=== PATIENT | female | born 1990 | race Two or more races ===

== ENCOUNTER 2017-05-26 17:56 | Emergency (ER) | payer OTHER ==
[~2017-05-26] VITALS: Ht 160 cm; Wt 95.5 kg
[2017-05-26] MEDS ORDERED: LEXA5SOL PO (18:05)
[2017-05-26] MEDS ORDERED: HYDR100T PO (18:05)
[2017-05-26] MEDS ORDERED: IBUPROFEN 600 MG TAB PO ONE (19:30)
[2017-05-26 20:15] VITALS: BP 162/120
--- NOTE | 2017-05-26 21:40 | REP ---
RIGHT ANKLE SERIES, COMPLETE: 05/26/2017: Clinical history: Trauma. Findings: Four view show soft tissue swelling anterolateral aspect of the ankle. No visible or displaced fracture of the distal tibia and fibula. The mortise joint is symmetric and preserved. There is no subtalar joint abnormality. No talar dome osteochondral defect. The talonavicular and calcaneal cuboid joint are normal. Visualized tarsal bones intact. Impression: 1. Prominent soft tissue swelling anterolateral aspect of the ankle without visible or displaced fracture, avulsion, disruption of the mortise joint, heel spurs or other acute finding. Signed by Félix Lee MD 05/27/2017 11:11 A
== END 2017-05-26 20:39 | disposition home or self-care (01) ==
LOC: M ED 17:56
DX: S93.401A Sprain of unspecified ligament of right ankle, initial encounter (principal); X50.9XXA Other and unspecified overexertion or strenuous movements or postures, initial encounter; Y92.410 Unspecified street and highway as the place of occurrence of the external cause; Y93.01 Activity, walking, marching and hiking; Y99.8 Other external cause status; I10 Essential (primary) hypertension; F41.9 Anxiety disorder, unspecified; F17.210 Nicotine dependence, cigarettes, uncomplicated; Z79.899 Other long term (current) drug therapy; Z88.5 Allergy status to narcotic agent; Z88.1 Allergy status to other antibiotic agents; Z91.041 Radiographic dye allergy status; Z87.442 Personal history of urinary calculi

== ENCOUNTER 2017-06-05 12:29 | Emergency (ER) | payer OTHER ==
[~2017-06-05] VITALS: Ht 162.6 cm; Wt 93.2 kg
[~2017-06-05 12:29] MED LIST: HYDR100T PO; LEXA5SOL PO
[2017-06-05 12:48] VITALS: BP 173/122
[2017-06-05] MEDS ORDERED: PENI500T GT (13:17)
== END 2017-06-05 13:32 | disposition home or self-care (01) ==
LOC: M ED 12:29
DX: J02.9 Acute pharyngitis, unspecified (principal); I10 Essential (primary) hypertension; E07.9 Disorder of thyroid, unspecified; F41.9 Anxiety disorder, unspecified; Z72.0 Tobacco use; Z91.041 Radiographic dye allergy status; Z88.5 Allergy status to narcotic agent; Z88.1 Allergy status to other antibiotic agents; Z79.899 Other long term (current) drug therapy

== ENCOUNTER → 2017-11-10 | Outpatient (REF) | payer OTHER ==
[2017-11-11 14:47] LABS: CHLAMYDIA DNA AMPLIFICATION NEGATIVE (NEGATIVE); GC DNA AMPLIFICATION NEGATIVE (NEGATIVE)
== END ==
LOC: M SFHCLERA 15:36
DX: R30.0 Dysuria (principal)
CPT/HCPCS: 87591

== ENCOUNTER → 2017-12-12 | Outpatient (CLI) | payer OTHER | LOC: M LRY 17:18 | DX: S93.401A Sprain of unspecified ligament of right ankle, initial encounter (principal); X58.XXXA Exposure to other specified factors, initial encounter; Y93.9 Activity, unspecified | CPT/HCPCS: 73610; G0463 ==

== ENCOUNTER → 2017-12-12 | Outpatient (REF) | payer OTHER | LOC: M SFHCLERA 18:25 | DX: L50.9 Urticaria, unspecified (principal) ==

== ENCOUNTER 2017-12-19 11:13 | Emergency (ER) | payer OTHER ==
[2017-12-19] MEDS: NS 500 ML IV (11:01)
[2017-12-19 11:14] LABS: BASO % 0.5 % (0.0-1.0); EOS # 0.1 10^3/uL (0.0-0.50); EOS % 1.6 % (0.0-3.0); HEMATOCRIT 36.9 % (36.0-47.0); HEMOGLOBIN 11.9 g/dl (12.0-16.0); IMMATURE GRANULOCYTE % 0.2 % (0-3.0); LYMPH # 2.7 10^3/uL (1.5-6.5); LYMPH % 42.8 % (24.0-44.0); MEAN CORPUSCULAR HGB CONC 32.2 g/dl (32.0-36.5); MEAN CORPUSCULAR VOLUME 89.8 fl (80.0-96.0); MONO # 0.7 10^3/uL (0.0-0.8); MONO % 10.8 % (0.0-5.0); NEUTROPHILS # 2.8 10^3/uL (1.8-7.7); NEUTROPHILS % 44.1 % (36.0-66.0); PLATELET COUNT, AUTOMATED 256 10^3/uL (150-450); RED BLOOD COUNT 4.11 10^6/uL (4.00-5.40); RED CELL DISTRIBUTION WIDTH 14.5 % (11.5-14.5); WHITE BLOOD COUNT 6.4 10^3/uL (4.0-10.0)
[2017-12-19] MEDS: ACETAMINOPHEN TAB 650MG DOSE (2X325MG) PO (11:37)
[2017-12-19 11:42] LABS: ANION GAP 8 MEQ/L (8-16); BLOOD UREA NITROGEN 16 MG/DL (7-18); CALCIUM LEVEL 8.6 MG/DL (8.5-10.1); CARBON DIOXIDE LEVEL 26 MEQ/L (21-32); CHLORIDE LEVEL 104 MEQ/L (98-107); CREATININE FOR GFR 0.95 MG/DL (0.55-1.30); FREE T4 1.09 NG/DL (0.76-1.46); GLOMERULAR FILTRATION RATE > 60.0 (>60); GLUCOSE, FASTING 93 MG/DL (70-100); POTASSIUM SERUM 3.9 MEQ/L (3.5-5.1); SODIUM LEVEL 138 MEQ/L (136-145)
== END 2017-12-19 14:33 | disposition home or self-care (01) ==
LOC: M ED 11:13
DX: J10.2 Influenza due to other identified influenza virus with gastrointestinal manifestations (principal); R55 Syncope and collapse; F33.9 Major depressive disorder, recurrent, unspecified; E66.9 Obesity, unspecified; Z79.899 Other long term (current) drug therapy; Z88.5 Allergy status to narcotic agent; Z88.8 Allergy status to other drugs, medicaments and biological substances; Z91.040 Latex allergy status; Z91.041 Radiographic dye allergy status
CPT/HCPCS: 93005

== ENCOUNTER → 2018-09-03 | Outpatient (REF) | payer OTHER | LOC: M SFHCLERA 18:31 | DX: R68.89 Other general symptoms and signs (principal) ==

== ENCOUNTER → 2018-10-09 | Outpatient (CLI) | payer OTHER ==
[~2018-10-09] MED LIST changes: +HYDR12.55 PO; +MICA80TA2 PO; +PENI500T GT; +ZOLO25TA PO
--- NOTE | 2018-10-09 12:20 | REP ---
KUB, ONE VIEW: HISTORY: Dysuria. Air is present in small and large intestine. There are no air fluid levels or dilated loops of intestine. There is no pneumoperitoneum. Calcifications are present overlying the kidneys consistent with nephrolithiasis. Phleboliths are present in the pelvis. Surgical clips are present in the left upper quadrant. IMPRESSION: 1. Nonspecific bowel gas pattern. 2. Bilateral nephrolithiasis. Electronically Signed by Mason Au MD 10/09/2018 12:21 P
== END ==
LOC: M WUC 10:08
PROVIDERS: ATTEND Physician Assistant
DX: N20.0 Calculus of kidney (principal)

== ENCOUNTER 2019-03-05 04:54 | Emergency (ER) | payer OTHER ==
[~2019-03-05] VITALS: Ht 160 cm; Wt 64.1 kg
[2019-03-05] MEDS ORDERED: NS 1,000 ML IV ONE (05:15)
[2019-03-05] MEDS ORDERED: KETOROLAC 30 MG/ML VIAL (J1885) IV ONE (05:15)
[2019-03-05] MEDS ORDERED: DILUENT IV ONE (05:30)
[2019-03-05] MEDS ORDERED: NACL IV ONE (05:30)
[2019-03-05] MEDS ORDERED: KETAMINE IV ONE (05:30)
[2019-03-05 05:33] LABS: BASO # 0.1 10^3/uL (0.0-0.2); BASO % 0.7 % (0.0-1.0); EOS # 0.2 10^3/uL (0.0-0.50); EOS % 2.3 % (0.0-3.0); HEMATOCRIT 42.6 % (36.0-47.0); HEMOGLOBIN 13.6 g/dl (12.0-15.5); LYMPH # 3.6 10^3/uL (1.5-6.5); LYMPH % 42.7 % (24.0-44.0); MEAN CORPUSCULAR HEMOGLOBIN 30.8 pg (27.0-33.0); MEAN CORPUSCULAR HGB CONC 31.9 g/dl (32.0-36.5); MEAN CORPUSCULAR VOLUME 96.6 fl (80.0-96.0); MONO # 0.7 10^3/uL (0.0-0.8); MONO % 8.5 % (0.0-5.0); NEUTROPHILS # 3.9 10^3/uL (1.8-7.7); NEUTROPHILS % 45.6 % (36.0-66.0); PLATELET COUNT, AUTOMATED 295 10^3/uL (150-450); RED BLOOD COUNT 4.41 10^6/uL (4.00-5.40); WHITE BLOOD COUNT 8.5 10^3/uL (4.0-10.0)
[2019-03-05 05:34] LABS: APPEARANCE, URINE CLOUDY (CLEAR); BACTERIA, URINE AUTO 2+ (NEGATIVE); BILIRUBIN, URINE AUTO NEGATIVE (NEGATIVE); BLOOD, URINE BLOOD 3+ (NEGATIVE); CALCIUM OXALATE CRYSTALS SMALL; COLOR, URINE YELLOW (YELLOW); GLUCOSE, URINE (UA) AUTO NEGATIVE (NEGATIVE); KETONE, URINE AUTO TRACE mg/dL (NEGATIVE); LEUKOCYTE ESTERASE, URINE AUTO 2+ (NEGATIVE); MUCUS, URINE LARGE (NEGATIVE); NITRITE, URINE AUTO POSITIVE (NEGATIVE); PROTEIN, URINE AUTO 1+ mg/dL (NEGATIVE); RBC, URINE AUTO TNTC /HPF (0-3); SPECIFIC GRAVITY URINE AUTO 1.021 (1.002-1.035); SQUAMOUS EPITHELIAL CELL UR AU 31 /HPF (0-6); UROBILINOGEN, URINE AUTO 0.2 mg/dL (0.0-2.0); WBC, URINE AUTO 115 /HPF (0-3)
[2019-03-05 05:54] LABS: HCG, SERUM QUALITATIVE NEGATIVE (NEGATIVE)
[2019-03-05 05:58] LABS: ALBUMIN 3.8 GM/DL (3.2-5.2); ALT/SGPT 16 U/L (12-78); BILIRUBIN,DIRECT < 0.1 MG/DL (0.0-0.2); BILIRUBIN,TOTAL 0.3 MG/DL (0.2-1.0); BLOOD UREA NITROGEN 13 MG/DL (7-18); CALCIUM LEVEL 9.2 MG/DL (8.5-10.1); CARBON DIOXIDE LEVEL 26 MEQ/L (21-32); CHLORIDE LEVEL 111 MEQ/L (98-107); CREATININE FOR GFR 0.88 MG/DL (0.55-1.30); GLOMERULAR FILTRATION RATE > 60.0 (>60); GLUCOSE, FASTING 82 MG/DL (70-100); LIPASE 590 U/L (73-393); POTASSIUM SERUM 4.1 MEQ/L (3.5-5.1); SODIUM LEVEL 143 MEQ/L (136-145); TOTAL PROTEIN 7.1 GM/DL (6.4-8.2)
[2019-03-05] MEDS ORDERED: TAMSULOSIN 0.4 MG CAP PO ONE (06:00)
[2019-03-05] MEDS ORDERED: CIPROFLOXACIN 400 MG in APPROPRIATE DILUENT 1 EA IV ONE (06:30)
--- NOTE | 2019-03-05 07:08 | REPVR ---
EXAM: CT Abdomen and Pelvis Without Contrast EXAM DATE/TIME: 03/05/2019 5:06 AM CLINICAL HISTORY: 28 years old, female; Abdominal pain; Flank; Left; Additional info: L colic TECHNIQUE: Imaging protocol: Axial computed tomography images of the abdomen and pelvis without contrast. Coronal and sagittal reformatted images were created and reviewed. Radiation optimization: All CT scans at this facility use at least one of these dose optimization techniques: automated exposure control; mA and/or kV adjustment per patient size (includes targeted exams where dose is matched to clinical indication); or iterative reconstruction. COMPARISON: No relevant prior studies available. FINDINGS: ABDOMEN: Liver: Normal. No mass. Gallbladder and bile ducts: Normal. No calcified stones. No ductal dilation. Pancreas: Normal. No ductal dilation. Spleen: Normal. No splenomegaly. Adrenals: Normal. No mass. Kidneys and ureters: Large nonobstructing bilateral renal calculi. No hydronephrosis. Stomach and bowel: Status post gastric sleeve. Appendix: A normal appendix is seen. PELVIS: Bladder: Unremarkable as visualized. Reproductive: Left ovarian cyst measuring 3.0 x 3.4 x 2.7 cm. ABDOMEN and PELVIS: Intraperitoneal space: Normal. No free air. No significant fluid collection. Bones/joints: No acute fracture. No dislocation. Soft tissues: Unremarkable. Vasculature: There are multiple pelvic phleboliths. No definite ureteral calculi are evident. Lymph nodes: Normal. No enlarged lymph nodes. IMPRESSION: 1. Multiple large nonobstructing bilateral renal calculi. No ureteral calculi are evident and there is no evidence of obstructive uropathy. 2. Left ovarian cyst measuring 3.4 x 2.7 x 3.0 cm. 3. Status post gastric sleeve. Electronically signed by: Gerson Carrasquillo On 03/05/2019 07:07:34 AM
[2019-03-05] MEDS ORDERED: PRIL20TA2 PO (07:26)
[2019-03-05] MEDS ORDERED: ULTR5TAB PO (07:26)
[2019-03-05] MEDS ORDERED: ONE-TAB PO (07:26)
[2019-03-05] MEDS ORDERED: ZOLO100T PO (07:26)
[2019-03-05] MEDS ORDERED: D3 U5000 PO (07:26)
[2019-03-05] MEDS ORDERED: AMLO10TA5 PO (07:26)
[2019-03-05] MEDS ORDERED: amLODIPine 10 MG TAB PO ONE (07:30)
[2019-03-05] MEDS ORDERED: CHLORTHALIDONE 12.5MG PER 1/2 TABLET PO ONE (07:30)
[2019-03-05] MEDS ORDERED: hydrALAZINE INJ 20 MG/ML VIAL IV ONE (07:30)
[2019-03-05 07:42] VITALS: BP 155/102
[2019-03-05] MEDS ORDERED: K-TA10TA2 PO (09:29)
[2019-03-05] MEDS ORDERED: AMLO10TA PO (09:29)
[2019-03-05] MEDS ORDERED: LIDO5DIS41 TD (09:29)
[2019-03-05] MEDS ORDERED: CHLO125TA PO (09:29)
[2019-03-05 09:45] VITALS: BP 131/89
== END 2019-03-05 10:04 | disposition home or self-care (01) ==
LOC: M ED 04:54
DX: N20.1 Calculus of ureter (principal); I10 Essential (primary) hypertension; F41.9 Anxiety disorder, unspecified; F32.9 Major depressive disorder, single episode, unspecified; Z79.899 Other long term (current) drug therapy; Z87.442 Personal history of urinary calculi; Z88.5 Allergy status to narcotic agent; Z88.6 Allergy status to analgesic agent; Z88.8 Allergy status to other drugs, medicaments and biological substances; Z91.040 Latex allergy status; Z91.041 Radiographic dye allergy status
CPT/HCPCS: 74176; 80048; 80076; 81001; 83690; 84703; 85025; 87086; 96361; 96365; 96366; 96368; 96375; 99284; J0744

== ENCOUNTER 2019-08-31 18:37 | Emergency (ER) | payer OTHER ==
[~2019-08-31] VITALS: Ht 160 cm; Wt 65.8 kg
[~2019-08-31 18:37] MED LIST changes: -MACR100C43 PO; -ONDA4TAB6 PO; -PYRI1TAB5 PO; -TYLETAB14 PO
[2019-08-31 19:56] LABS: BASO # 0.1 10^3/uL (0.0-0.2); BASO % 0.5 % (0.0-1.0); EOS # 0.1 10^3/uL (0.0-0.5); EOS % 1.2 % (0.0-3.0); HEMATOCRIT 37.5 % (36.0-47.0); LYMPH # 3.2 10^3/uL (1.5-5.0); LYMPH % 27.2 % (24.0-44.0); MEAN CORPUSCULAR HEMOGLOBIN 30.1 pg (27.0-33.0); MONO # 0.9 10^3/uL (0.0-0.8); MONO % 7.4 % (0.0-5.0); NEUTROPHILS # 7.4 10^3/uL (1.5-8.5); NEUTROPHILS % 63.4 % (36.0-66.0); PLATELET COUNT, AUTOMATED 289 10^3/uL (150-450); RED BLOOD COUNT 3.99 10^6/uL (4.00-5.40); WHITE BLOOD COUNT 11.7 10^3/uL (4.0-10.0)
[2019-08-31] MEDS ORDERED: KETOROLAC 30 MG/ML VIAL (J1885) IV ONE (20:15)
[2019-08-31 20:22] LABS: ALBUMIN 3.5 GM/DL (3.2-5.2); ALT/SGPT 19 U/L (12-78); BILIRUBIN,DIRECT < 0.1 MG/DL (0.0-0.2); BILIRUBIN,TOTAL 0.3 MG/DL (0.2-1.0); BLOOD UREA NITROGEN 12 MG/DL (7-18); CALCIUM LEVEL 8.7 MG/DL (8.5-10.1); CARBON DIOXIDE LEVEL 25 MEQ/L (21-32); CHLORIDE LEVEL 112 MEQ/L (98-107); CREATININE FOR GFR 0.86 MG/DL (0.55-1.30); GLOMERULAR FILTRATION RATE > 60.0 (>60); GLUCOSE, FASTING 84 MG/DL (70-100); LIPASE 191 U/L (73-393); SODIUM LEVEL 141 MEQ/L (136-145); TOTAL PROTEIN 6.7 GM/DL (6.4-8.2)
--- NOTE | 2019-08-31 21:15 | REPVR ---
PROCEDURE INFORMATION: Exam: CT Abdomen And Pelvis Without Contrast Exam date and time: 08/31/2019 8:53 PM Age: 29 years old Clinical history: Abdominal pain; Localized; Left; Additional info: L flank pain TECHNIQUE: Imaging protocol: Computed tomography of the abdomen and pelvis without contrast. Axial, coronal and sagittal reformatted images were created and reviewed. Radiation optimization: All CT scans at this facility use at least one of these dose optimization techniques: automated exposure control; mA and/or kV adjustment per patient size (includes targeted exams where dose is matched to clinical indication); or iterative reconstruction. COMPARISON: CT ABD PELVIS W/O CONTRAST 03/05/2019 5:55 AM FINDINGS: Liver: Unremarkable. Gallbladder and bile ducts: No radiodense gallstones. No biliary ductal dilatation. Pancreas: Unremarkable. Spleen: Unremarkable. Adrenals: Unremarkable. Kidneys and ureters: 9 mm right renal cyst. Multiple nonobstructing bilateral renal calculi. No hydronephrosis. Stomach and bowel: Status post gastric sleeve. No obstruction. No bowel wall thickening. No pneumatosis. Appendix: Normal. Intraperitoneal space: Trace nonspecific free pelvic fluid, likely physiologic. No organized fluid collection. No free air. Vasculature: Unremarkable. No aneurysm. Lymph nodes: No pathologically enlarged lymph nodes. Bladder: Unremarkable. Reproductive: Unremarkable. Bones/joints: No acute osseous abnormality. Soft tissues: Unremarkable. IMPRESSION: 1. Multiple nonobstructing bilateral renal calculi. No hydronephrosis. 2. Additional findings, as above. COMMENT: Consistent with the [employer]'s Incidental Findings Committee Report (J Am Karen Radiol 2010): Unless the patient's specific circumstances suggest otherwise, any liver lesion 0.5 cm or less, any cystic kidney lesion less than 1.0 cm, and/or any adrenal lesion 1.0 cm or less not otherwise characterized in this report as possessing suspicious or indeterminate imaging features is/are highly likely to be benign and do not require follow-up imaging or biopsy. Electronically signed by: Celio Taylor On 08/31/2019 21:15:00 PM
[2019-08-31] MEDS ORDERED: MACR100C43 PO (22:05)
[2019-08-31] MEDS ORDERED: TYLETAB14 PO (22:05)
[2019-08-31] MEDS ORDERED: ONDA4TAB6 PO (22:05)
[2019-08-31] MEDS ORDERED: ACETAMINOPH W/CODEINE #3 TAB UD PO ONE (22:15)
[2019-08-31] MEDS ORDERED: NITROFURANTOIN (MACROBID) 100 MG CAP PO ONE (22:15)
[2019-08-31 22:20] VITALS: BP 158/98
[2019-09-01] MEDS ORDERED: PYRI1TAB5 PO (12:01)
[2019-09-01] MEDS ORDERED: TYLETAB14 PO (12:01)
--- NOTE | 2019-09-01 12:04 | ED PDOC ---
Post-Departure Follow-Up pts chart reviewed by this provider after getting call from pt that she did not receive her paper rx for tylenol #3 for renal colic. pt does have UTI with bilateral intrarenal stone. rx for tylenol with codeine sent to [facility] along with pyridium for bladder/UTI pain. charge nurse contacted pt regarding this change. IRMA HENDERSON Sep 01, 2019 12:04
== END 2019-08-31 22:33 | disposition home or self-care (01) ==
LOC: M ED 18:37
DX: N39.0 Urinary tract infection, site not specified (principal); N20.0 Calculus of kidney; Z87.440 Personal history of urinary (tract) infections; I10 Essential (primary) hypertension; D50.9 Iron deficiency anemia, unspecified; F41.9 Anxiety disorder, unspecified; Z87.42 Personal history of other diseases of the female genital tract; Z98.84 Bariatric surgery status; Z88.0 Allergy status to penicillin; Z96.0 Presence of urogenital implants; Z91.041 Radiographic dye allergy status; Z88.1 Allergy status to other antibiotic agents; Z88.5 Allergy status to narcotic agent; Z88.8 Allergy status to other drugs, medicaments and biological substances; Z91.040 Latex allergy status; Z79.899 Other long term (current) drug therapy
CPT/HCPCS: 74176; 80048; 80076; 81001; 81002; 81025; 83690; 84702; 85025; 87086; 87088; 87186; 96374; 99284; G0463; J1885

== ENCOUNTER → 2019-08-31 | Outpatient (REF) | payer OTHER ==
[~2019-08-31] MED LIST changes: +AMLO10TA PO; +AMLO10TA5 PO; +CHLO125TA PO; +D3 U5000 PO; +K-TA10TA2 PO; +LIDO5DIS41 TD; +MACR100C43 PO; +ONDA4TAB6 PO; +ONE-TAB PO; +PRIL20TA2 PO; +PYRI1TAB5 PO; +TYLETAB14 PO; +ULTR5TAB PO; +ZOLO100T PO
== END ==
LOC: M SFHCLERA 17:52
PROVIDERS: ATTEND Physician Assistant
DX: R10.9 Unspecified abdominal pain (principal)

== ENCOUNTER 2019-11-08 10:13 | Emergency (ER) | payer OTHER ==
[~2019-11-08] VITALS: Ht 160 cm; Wt 62.0 kg
[~2019-11-08 10:13] MED LIST changes: +MACR100C43 PO; +ONDA4TAB6 PO; +PYRI1TAB5 PO; +TYLETAB14 PO
[2019-11-08] MEDS ORDERED: NS 500 ML IV ONE ×2 (10:30→11:30)
--- NOTE | 2019-11-08 10:51 | REP ---
Head CT without contrast: History: CVA. Comparison study: No comparison study. CT findings: Bone window settings demonstrate an intact bony calvarium. There is no evidence of skull fracture or incidental bony calvarial lesion. There is mild mucosal thickening in the left maxillary and left ethmoid sinus air cells. The visualized paranasal sinuses appear otherwise clear. No intraorbital abnormality is seen. On soft tissue window setting images; the lateral, third, and fourth ventricles are normal in size and position. Ruff-white differentiation pattern is normal above and below the tentorium. There are is no evidence of intracranial hemorrhage. No mass, edema, infarction, or midline shift is seen. No extra-axial fluid collection is appreciated. Impression: There is mild mucosal thickening in the left maxillary and left ethmoid air cells. Otherwise negative noncontrast head CT. Electronically Signed by Isaiah Giles MD 11/08/2019 10:49 A
[2019-11-08 11:03] LABS: BASO # 0.1 10^3/uL (0.0-0.2); EOS # 0.2 10^3/uL (0.0-0.5); EOS % 4.1 % (0.0-3.0); HEMOGLOBIN 12.8 g/dl (12.0-15.5); LYMPH # 1.1 10^3/uL (1.5-5.0); LYMPH % 18.2 % (24.0-44.0); MEAN CORPUSCULAR HEMOGLOBIN 30.2 pg (27.0-33.0); MEAN CORPUSCULAR HGB CONC 31.2 g/dl (32.0-36.5); MEAN CORPUSCULAR VOLUME 96.7 fl (80.0-96.0); MONO # 0.6 10^3/uL (0.0-0.8); MONO % 10.3 % (0.0-5.0); NEUTROPHILS # 3.9 10^3/uL (1.5-8.5); NEUTROPHILS % 66.2 % (36.0-66.0); PLATELET COUNT, AUTOMATED 210 10^3/uL (150-450); RED BLOOD COUNT 4.24 10^6/uL (4.00-5.40); WHITE BLOOD COUNT 5.8 10^3/uL (4.0-10.0)
[2019-11-08 11:17] LABS: INR 1.01
[2019-11-08 11:22] LABS: PARTIAL THROMBOPLASTIN TIME 24.1 SECONDS (25.0-38.4)
[2019-11-08] MEDS ORDERED: ACETAMINOPHEN 500 MG TAB PO ONE (11:30)
[2019-11-08] MEDS ORDERED: KETOROLAC 30 MG/ML VIAL (J1885) IV ONE (11:30)
[2019-11-08 11:32] LABS: CK-MB VALUE MASS < 1.0 NG/ML (<3.6); CPK CREATINE PHOSPHOKINASE 81 U/L (26-192); MB/CK RELATIVE INDEX 1.23 (< OR =4); TROPONIN I < 0.02 NG/ML (< 0.10)
--- NOTE | 2019-11-08 11:41 | REP ---
Portable chest x-ray: Sitting AP view. History: CVA. Findings: The lungs are symmetrically aerated and clear. Pleural angles are sharp. Heart size is normal. Pulmonary vasculature is not increased. No significant bony abnormality is seen. Impression: No active disease. Electronically Signed by Isaiah Giles MD 11/08/2019 11:32 A
[2019-11-08] MEDS ORDERED: METOCLOPRAMIDE INJ 10MG/2ML VIAL (J2765) IV ONE (12:00)
[2019-11-08 12:45] VITALS: BP 158/115
[2019-11-08] MEDS ORDERED: AUGM875T28 PO (12:56)
[2019-11-08] MEDS ORDERED: ALL10TAB29 PO (12:56)
[2019-11-08] MEDS ORDERED: AZEL1SPR3 NARES (12:57)
--- NOTE | 2019-11-08 19:13 | ECGEPIP ---
[facility] - ED Test Date: 2019-11-08 Pat Name: SUNNY SARAH Department: Room: - Gender: Female Gum Remover: : 1990 Requested By: IRMA Ling Order Number: [id number] Reading MD: Marcela Cleveland Measurements Intervals [place] Rate: 76 P: 44 IN: 129 QRS: 61 QRSD: 73 T: 36 QT: 396 QTc: 447 Interpretive Statements SINUS RHYTHM SIMILAR 12/19/17 Electronically Signed on 11-08-2019 19:13:29 EST by Marcela Cleveland
== END 2019-11-08 13:13 | disposition home or self-care (01) ==
LOC: EDSEX 10:13 → EDBD 10:13 → M ED 10:13
DX: J32.9 Chronic sinusitis, unspecified (principal); I10 Essential (primary) hypertension; Z79.899 Other long term (current) drug therapy; Z88.1 Allergy status to other antibiotic agents; Z88.5 Allergy status to narcotic agent; Z88.8 Allergy status to other drugs, medicaments and biological substances; Z91.040 Latex allergy status; Z91.041 Radiographic dye allergy status
CPT/HCPCS: 70450; 71045; 80047; 82550; 82553; 84484; 84702; 85025; 85610; 85730; 86850; 86900; 86901; 93005; 93041; 94760; 96361; 96374; 99285; G0463; J1885

== ENCOUNTER 2019-11-12 08:42 | Inpatient (IN) | payer OTHER ==
[~2019-11-12] VITALS: Ht 160 cm; Wt 65.8 kg
[~2019-11-12 08:42] MED LIST changes: +ALL10TAB29 PO; +AUGM875T28 PO; +AZEL1SPR3 NARES
[2019-11-12] MEDS ORDERED: TAMSULOSIN 0.4 MG CAP PO SCH (09:00)
[2019-11-12 09:28] LABS: HEMATOCRIT 43.5 % (36.0-47.0); HEMOGLOBIN 13.4 g/dl (12.0-15.5); MEAN CORPUSCULAR HEMOGLOBIN 29.3 pg (27.0-33.0); MEAN CORPUSCULAR HGB CONC 30.8 g/dl (32.0-36.5); PLATELET COUNT, AUTOMATED 220 10^3/uL (150-450); RED BLOOD COUNT 4.58 10^6/uL (4.00-5.40); WHITE BLOOD COUNT 4.1 10^3/uL (4.0-10.0)
[2019-11-12] MEDS ORDERED: KETOROLAC 30 MG/ML VIAL (J1885) IV ONE (09:30)
[2019-11-12 09:58] LABS: BILIRUBIN, URINE MANUAL NEGATIVE (NEGATIVE); GLUCOSE, URINE (UA) MANUAL NEGATIVE (NEGATIVE); KETONE, URINE MANUAL NEGATIVE (NEGATIVE); UROBILINOGEN, URINE MANUAL NORMAL (NORMAL)
[2019-11-12 10:00] LABS: ALBUMIN 3.9 GM/DL (3.2-5.2); ALT/SGPT 20 U/L (12-78); BILIRUBIN,DIRECT 0.1 MG/DL (0.0-0.2); BILIRUBIN,TOTAL 0.2 MG/DL (0.2-1.0); BLOOD UREA NITROGEN 16 MG/DL (7-18); CARBON DIOXIDE LEVEL 27 MEQ/L (21-32); CHLORIDE LEVEL 108 MEQ/L (98-107); CREATININE FOR GFR 0.95 MG/DL (0.55-1.30); GLOMERULAR FILTRATION RATE > 60.0 (>60); GLUCOSE, FASTING 95 MG/DL (70-100); POTASSIUM SERUM 3.8 MEQ/L (3.5-5.1); SODIUM LEVEL 143 MEQ/L (136-145); TOTAL PROTEIN 7.4 GM/DL (6.4-8.2)
[2019-11-12 10:00] LABS: BACTERIA, URINE SMALL AMOUNT; SQUAMOUS EPITHELIAL CELL URINE MOD AMOUNT /hpf (SMALL AMT); YEAST, URINE SMALL AMOUNT
[2019-11-12] MEDS ORDERED: TAMSULOSIN 0.4 MG CAP PO ONE ×2 (10:15→23:45)
--- NOTE | 2019-11-12 10:19 | REP ---
CT of the abdomen pelvis without IV wall contrast for left lower quadrant pain and history of renal calculi: Comparison is 08/31/1928 teen. There are multiple bilateral nonobstructive renal calculi, as previously. However, there is left hydronephrosis/hydroureter as an interval change. There are two calculi in the pelvis on the left, not present previously, what along the left pelvic sidewall on image 100 and a left posterolateral to the urinary bladder on the left on image 120. These calculi measure approximate millimeters in diameter each and were not present in these locations on the comparison study, therefore, could be a left ureteral calculi. Confirmation with a CT urogram might be considered for assurance that these calculi within the ureter. There is no perinephric stranding on the left on the right. The visualized lower lung lund are unremarkable. The unenhanced hepatic parenchyma, gallbladder, and spleen are unremarkable. The pancreas is obscured by the minimal intraperitoneal body fat. There are surgical clips in the gastric wall as previously. The adrenals are unremarkable. The abdominal aorta is unremarkable. There is no periaortic adenopathy or mass. There is no bowel distension or obstruction. There is no ascites. Pelvis: The appendix is unremarkable. The uterus and adnexa are unremarkable. The pelvic bowel loops are unremarkable. There is no ascites or adenopathy. Impression: There are two 8 mm calculi in the pelvis on the left, not present on the comparison study, possibly distal left ureteral calculi. There is left hydronephrosis as an interval change. Consider a CT urogram for confirmation. There are surgical clips in the gastric wall as previously. There are multiple bilateral nonobstructive renal calculi, as previously. Electronically Signed by Tae Mark MD 11/12/2019 10:11 A
[2019-11-12 10:20] LABS: AMPHETAMINES LEVEL URINE NEGATIVE (NEGATIVE); BARBITURATES URINE NEGATIVE (NEGATIVE); BENZODIAZEPINES URINE NEGATIVE (NEGATIVE); CANNABINOIDS URINE POSITIVE (NEGATIVE); COCAINE METABOLITE URINE NEGATIVE (NEGATIVE); METHADONE URINE NEGATIVE (NEGATIVE); OPIATES URINE NEGATIVE (NEGATIVE); PHENCYCLIDINE URINE NEGATIVE (NEGATIVE)
[2019-11-12] MEDS: fentaNYL 100 MCG/2 ML INJECTION (J3010) IV PRN ×6 (10:23→18:45)
[2019-11-12] MEDS ORDERED: AMOX875T2 PO (11:53)
[2019-11-12] MEDS ORDERED: AZEL0.1S NARES (11:53)
[2019-11-12] MEDS ORDERED: AMLO10TA5 PO (11:53)
[2019-11-12] MEDS ORDERED: CETI10TA4 PO (11:53)
[2019-11-12] MEDS ORDERED: ONDANSETRON 4MG/2ML VIAL (J2405) IV PRN ×2 (12:30→18:30)
--- NOTE | 2019-11-12 12:52 | HPEPDOC ---
General Date of Admission 11/12/19 Date of Service: Nov 12, 2019 Chief Complaint The patient is a 29-year-old female admitted with a reason for visit of Flank Pain. Source: Patient Exam Limitations: No limitations Timing/Duration: Day(s) Severity: Severe Associated Symptoms: Nausea History of Present Illness Patient is 29 years old female with past history of nephrolithiasis, medullary s ponge kidney, gastric sleeve surgery, hypertension presented to the hospital with severe left lower quadrant abdominal pain. Patient stated the pain 10 out of 10 started few days ago associated with nausea and vomiting. Patient denies any fever but has chills. Of note patient had multiple episodes of nephrolithiasis with renal colic. She had 2 percutaneous nephrolithotomy in the past. In emergency room patient was found to have on abdominal CT two 8 mm calculi in the pelvis on the left, not present on the comparison study, possibly distal left ureteral calculi. There is left hydronephrosis as an interval change. Urologist Dr. Baird is planing to place a left ureteral stent. Home Medications Scheduled Amlodipine Besylate (Amlodipine Besylate) 10 Mg Tablet, 10 MG PO DAILY, (Reported) Amoxicillin/Potassium Clav (Amox-Clav 875-125 mg Tablet) 1 Each Tablet, 1 TAB PO BID, (Reported) FILLED 11/08/19 FOR 10 DAYS Azelastine HCl (Azelastine HCl) 0.1% [place].pump, 2 SPRAY NARES BID, (Reported) Cetirizine HCl (Cetirizine HCl) 10 Mg Tablet, 10 MG PO QHS, (Reported) Tamsulosin HCl (Flomax) 0.4 Mg Capsule, 0.4 MG PO DAILY Scheduled PRN Oxybutynin Chloride (Oxybutynin Chloride) 5 Mg Tablet, 5 MG PO Q8HP PRN for BLADDER SPASM Oxycodone HCl/Acetaminophen (Oxycodone-Acetaminophen 5-325) 1 Each Tablet, 1 TAB PO Q6HP PRN for MODERATE/SEVERE PAIN (PS 5-10) Allergies Coded Allergies: morphine (Verified Allergy, Severe, "i coded", 03/05/19) Cephalosporins (Verified Allergy, Intermediate, rash, 03/05/19) Contrast Media (Verified Allergy, Intermediate, ITCHING, 05/26/17) ergocalciferol (vitamin D2) (Verified Allergy, Intermediate, 03/05/19) tremors latex (Verified Allergy, Intermediate, rash, 03/05/19) ketamine (Verified Adverse Reaction, Intermediate, "PASSED OUT", 08/31/19) NSAIDS (Non-Steroidal Anti-Inflamma (Verified Adverse Reaction, Mild, gi bleeding/ gasrtic sleeve, 08/31/19) gi bleeding/ gasrtic sleeve Past Medical History Medical History nephrolithiasis, medullary sponge kidney, gastric sleeve surgery, hypertension Surgical History Gastric sleeve surgery Family History Father has hypertension, diabetes, mother has ovarian and breast cancer Social History * Smoker: Denies Alcohol: Denies Drugs: denies A-FIB/CHADSVASC A-FIB History Current/History of A-Fib/PAF?: No Current PO Anticoag Therapy: No Review of Systems Constitutional: Reports: Chills; Denies: Fever Eyes: Denies: Pain, Vision change ENT: Denies: Head Aches Skin: Denies: Rash, Lesions Pulmonary: Denies: Dyspnea, Cough Cardiovascular: Denies: Chest Pain, Palpitations Gastrointestinal: Reports: Nausea, Abdominal Pain Genitourinary: Reports: Dysuria Hematologic: Denies: Bruising, Bleeding Excessively Endocrine: Denies: Polydipsia, Polyphagia Musculoskeletal: Denies: Neck Pain, Back Pain Neurological: Denies: Weakness Psych: Reports: Mood Normal Physical Examination General Exam: Positive: Alert, Cooperative, Severe Distress Eye Exam: Positive: PERRLA ENT Exam: Positive: Atraumatic Neck Exam: Positive: Supple; Negative: JVD Chest Exam: Positive: Clear to auscultation Heart Exam: Positive: Tachycardic Telemetry: Positive: Sinus Abdomen Exam: Positive: Normal bowel sounds, BS Hypoactive, Tenderness (left lower quadrant) Extremity Exam: Negative: Clubbing, Cyanosis Skin Exam: Positive: Nl turgor and temperature Neuro Exam: Positive: Strength at 5/5 X4 ext, Cranial Nerves 3-12 NL Psych Exam: Positive: Mental status NL Vital Signs Vital Signs Date Time Temp Pulse Resp B/P (MAP) Pulse Ox O2 Delivery O2 Flow Rate FiO2 11/12/19 11:16 20 11/12/19 11:15 100 Room Air 11/12/19 08:52 11/12/19 08:42 97.7 105 Laboratory Data Labs 24H Laboratory Tests 2 11/12/19 09:14: Nucleated Red Blood Cells % (auto) 0.0, Activated Partial Thromboplast Time 27.3, Anion Gap 8, Glomerular Filtration Rate > 60.0, Lactic Acid Level 1.0, Calcium Level 9.0, Total Bilirubin 0.2, Direct Bilirubin 0.1, Aspartate Amino Transf (AST/SGOT) 13, Alanine Aminotransferase (ALT/SGPT) 20, Alkaline Phosphatase 73, Total Protein 7.4, Albumin 3.9, Albumin/Globulin Ratio 1.11 11/12/19 09:48: Urine Color (CHRISTIANO) YELLOW, Urine Appearance (CHRISTIANO) HAZYH, Urine pH (CHRISTIANO) 7.0, Urine Specific [place] (CHRISTIANO) 1.015, Bedside Urine Glucose (UA) NEGATIVE, Bedside Urine Ketones (LAB) NEGATIVE, Bedside Urine Blood POSITIVEH, Bedside Urine Nitrite (LAB) NEGATIVE, Bedside Urine Bilirubin (LAB) NEGATIVE, Bedside Urine Urobilinogen (LAB) NORMAL, Bedside Urine Leukocyte Esterase (L POSITIVEH, Urine Sediment Examination UNSPUN, Urine RBC 10-15H, Urine WBC 5-7H, Urine Squamous Epithelial Cells MOD AMOUNTH, Urine Bacteria SMALL AMOUNTH, Urine Hyaline Casts , Urine Yeast SMALL AMOUNTH, Urine Opiates Screen NEGATIVE, Urine Methadone Screen NEGATIVE, Urine Barbiturates Screen NEGATIVE, Urine Phencyclidine Screen NEGATIVE, Urine Amphetamines Screen NEGATIVE, Urine Benzodiazepines Screen NEGA TIVE, Urine Cocaine Metabolite Screen NEGATIVE, Urine Cannabinoids Screen POSITIVEH CBC/BMP Laboratory Tests 11/12/19 09:14 Microbiology Microbiology 11/12/19 Urine Culture, Received Pending 11/12/19 Blood Culture, Received Pending Assessment/Plan Patient is 29 years old female with past history of nephrolithiasis, medullary sponge kidney, gastric sleeve surgery, hypertension presented to the hospital with severe left lower quadrant abdominal pain. Patient stated the pain 10 out of 10 started few days ago associated with nausea and vomiting. In emergency room patient was found to have on abdominal CT two 8 mm calculi in the pelvis on the left, not present on the comparison study, possibly distal left ureteral calculi. There is left hydronephrosis as an interval change. Problems (1) Ureterolithiasis Status: Acute Problem Text: Patient has history of nephrolithiasis Dr. Baird will put stents IV fluid Flomax (2) Renal colic Status: Acute Problem Text: Pain management with Toradol and tramadol (3) Left flank pain Status: Acute Problem Text: Secondary to left ureteral obstruction See above Plan / VTE VTE Prophylaxis Ordered?: Yes FRANCESCA THOMSON DO Nov 12, 2019 12:52
[2019-11-12] MEDS ORDERED: traMADol 50 MG TAB PO ONE (13:00)
[2019-11-12 13:33] LABS: URIC ACID 5.4 MG/DL (2.6-6.0)
[2019-11-12 13:46] LABS: PTH INTACT 53.7 PG/ML (18.5-88.0)
[2019-11-12 14:53] VITALS: BP 180/118
[2019-11-12] MEDS: amLODIPine 10 MG TAB PO SCH (15:02)
[2019-11-12] MEDS ORDERED: CONRAY-60 60% 50ML VIAL (Q9961) As Ordered ONE (15:21)
[2019-11-12] MEDS: HYDROcodone/APAP LIQUID 7.5-325MG 15ML UDC (LORTAB ELIXIR) PO PRN (15:56)
[2019-11-12] MEDS ORDERED: propofoL 200 MG/20 ML VIAL As Ordered ONE (16:11)
[2019-11-12] MEDS ORDERED: LIDOCAINE 2% INJ 100 MG/5 ML SDV (FOR ANES.) As Ordered ONE (16:12)
--- NOTE | 2019-11-12 16:12 | SMCUROLCON ---
Urology Consultation General Date of Consultation 11/12/19 Reason For Consultation This patient is seen for Left Flank Pain Renal Colic Ureterolithiasis. History of Present Illness This is a 29 y/o F w/ a PMH significant for kidney stones s/p several surgeries (most recently a PCNL on the left last summer), medullary sponge kidney, and osteopenia, presenting to the ER w/ left sided flank pain. On CT she was found to have two 8mm distal left ureteral stones and b/l kidney stones. Due to intractable pain she was admitted to the hospital. She denies fevers or dysuria. At this time she notes her pain is a 7/10. She denies n/v. Past Medical History Medical History see HPI Surgical Hstory multiple PCNLs and ureteroscopies Medications Current Medications Current Medications Medications (Trade) Dose Ordered Sig/Jacquelyn Route PRN Reason Start Time Stop Time Status Last Admin Dose Admin Acetaminophen/ Hydrocodone Bitart (Lortab Liquid 7.5-325 Mg/15ml) 5 ml Q4HP PRN PO MODERATE PAIN (PS 5-7) 11/12/19 15:15 11/12/19 15:56 Amlodipine Besylate (Norvasc) 10 mg DAILY PO 11/12/19 09:00 11/12/19 15:02 Cetirizine HCl (ZyrTEC) 10 mg QHS PO 11/12/19 21:00 Fentanyl Citrate (Sublimaze) 50 mcg Q30M PRN IV SEVERE PAIN (PS 8-10) 11/12/19 10:15 11/12/19 11:12 DC 11/12/19 11:11 Heparin Sodium (Porcine) (Heparin) 5,000 units Q12H SC 11/12/19 21:00 Home Med (Med Rec Complete!) ASDIRECTED XX 11/12/19 12:00 11/12/19 11:55 DC Ketorolac Tromethamine (ToRADol) 15 mg Q6H PRN IV PAIN 11/12/19 16:00 11/17/19 15:59 Ondansetron HCl (ZOFRAN INJection) 4 mg Q6H PRN IV NAUSEA 11/12/19 12:30 Tamsulosin HCl (Flomax) 0.4 mg DAILY PO 11/12/19 09:00 11/12/19 12:42 DC Tamsulosin HCl (Flomax) 0.4 mg DAILY PO 11/13/19 09:00 Allergies Allergies: Coded Allergies: morphine (Verified Allergy, Severe, "i coded", 03/05/19) Cephalosporins (Verified Allergy, Intermediate, rash, 03/05/19) Contrast Media (Verified Allergy, Intermediate, ITCHING, 05/26/17) ergocalciferol (vitamin D2) (Verified Allergy, Intermediate, 03/05/19) tremors latex (Verified Allergy, Intermediate, rash, 03/05/19) ketamine (Verified Adverse Reaction, Intermediate, "PASSED OUT", 08/31/19) NSAIDS (Non-Steroidal Anti-Inflamma (Verified Adverse Reaction, Mild, gi bleeding/ gasrtic sleeve, 08/31/19) gi bleeding/ gasrtic sleeve Review of Systems Constitutional: Denies: Fever Pulmonary: Denies: Dyspnea, Cough Cardiovascular: Denies Chest Pain, Denies Palpitations Gastrointestinal: Denies: Vomiting Genitourinary: Denies: Dysuria, Frequency, Incontinence, Hematuria Musculoskeletal: Reports: Back Pain (left flank pain) Psych: Reports: Mood Normal Physical Examination General Exam: Alert, Cooperative Abdomen Exam: Soft, Tenderness (LLQ) Skin Exam: Nl turgor and temperature Neuro Exam: Normal Speech Psych Exam: Mental status NL, Mood NL Vital Signs/I&O Vital Signs Date Time Temp Pulse Resp B/P (MAP) Pulse Ox O2 Delivery O2 Flow Rate FiO2 11/12/19 15:56 18 Room Air 11/12/19 15:02 77 180/118 11/12/19 14:53 98.4 100 Laboratory Data 24H Labs Laboratory Tests 2 11/12/19 09:14: Nucleated Red Blood Cells % (auto) 0.0, Activated Partial Thromboplast Time 27.3, Anion Gap 8, Glomerular Filtration Rate > 60.0, Lactic Acid Level 1.0, Uric Acid 5.4, Calcium Level 9.0, Phosphorus Level 3.0, Total Bilirubin 0.2, Direct Bilirubin 0.1, Aspartate Amino Transf (AST/SGOT) 13, Alanine Aminotransferase (ALT/SGPT) 20, Alkaline Phosphatase 73, Total Protein 7.4, Albumin 3.9, Albumin/Globulin Ratio 1.11, Parathyroid Hormone (Intact) 53.7 11/12/19 09:48: Urine Color (CHRISTIANO) YELLOW, Urine Appearance (CHRISTIANO) HAZYH, Urine pH (CHRISTIANO) 7.0, Urine Specific [place] (CHRISTIANO) 1.015, Bedside Urine Glucose (UA) NEGATIVE, Bedside Urine Ketones (LAB) NEGATIVE, Bedside Urine Blood POSITIVEH, Bedside Urine Nitrite (LAB) NEGATIVE, Bedside Urine Bilirubin (LAB) NEGATIVE, Bedside Urine Urobilinogen (LAB) NORMAL, Bedside Urine Leukocyte Esterase (L POSITIVEH, Urine Sediment Examination UNSPUN, Urine RBC 10-15H, Urine WBC 5-7H, Urine Squamous Epithelial Cells MOD AMOUNTH, Urine Bacteria SMALL AMOUNTH, Urine Hyaline Casts , Urine Yeast SMALL AMOUNTH, Urine Opiates Screen NEGATIVE, Urine Methadone Screen NEGATIVE, Urine Barbiturates Screen NEGATIVE, Urine Phencyclidine Screen NEGATIVE, Urine Amphetamines Screen NEGATIVE, Urine Benzodiazepines Screen NEGATIVE, Urine Cocaine Metabolite Screen NEGATIVE, Urine Cannabinoids Screen POSITIVEH CBC/BMP Laboratory Tests 11/12/19 09:14 Microbiology Microbiology 11/12/19 Urine Culture, Received Pending 11/12/19 Blood Culture, Received Pending Assessment This is a 29 y/o F w/ medullary sponge kidney admitted for pain control for obstructing left ureteral stones. I discussed taking her to the OR for cystoscopy, left ureteroscopy w/ laser lithotripsy, left ureteral stent placement, and possible right ureteral stent placement. After a discussion of the risks and benefits of surgery, informed consent was signed. She did note that she would like to avoid placing a right ureteral stent if possible. Plan - informed consent signed for cysto, left ureteroscopy w/ laser lithotripsy, left ureteral stent placement, possible right ureteral stent placement - will plan to clear the stones out on the left today and likely set her up for an ESWL on the right next week - levaquin preop - NPO until surgery - ok for discharge home tomorrow morning if pain is controlled at that point MABLE HIDALGO MD Nov 12, 2019 16:12
[2019-11-12] MEDS ORDERED: LevoFLOXacin IV 500 MG in IV 1 EA IV SCH (16:15)
[2019-11-12] MEDS ORDERED: dexameTHASONE 4 MG/ML 1ML VIAL (J1100) As Ordered ONE (16:16)
[2019-11-12] MEDS ORDERED: ONDANSETRON 4MG/2ML VIAL (J2405) As Ordered ONE (16:16)
[2019-11-12] MEDS ORDERED: fentaNYL 100 MCG/2 ML INJECTION (J3010) As Ordered ONE ×3 (16:17→18:31)
[2019-11-12] MEDS ORDERED: MIDAZOLAM INJ 2 MG/2 ML VIAL (J2250) As Ordered ONE (16:17)
[2019-11-12] MEDS ORDERED: LevoFLOXacin(LEVAQUIN)500 MG/100 ML BAG (J1956) As Ordered ONE (16:50)
[2019-11-12] MEDS ORDERED: ESMOLOL INJ 100MG/10ML VIAL As Ordered ONE (16:54)
[2019-11-12] MEDS ORDERED: oxyCODONE 5MG TAB PO PRN (18:30)
[2019-11-12] MEDS ORDERED: LR 1,000 ML IV SCH (18:30)
[2019-11-12] MEDS ORDERED: OXYB5TAB10 PO (18:38)
[2019-11-12] MEDS ORDERED: OXYC1TAB23 PO (18:38)
[2019-11-12] MEDS ORDERED: FLOM0.4C39 PO (18:38)
--- NOTE | 2019-11-12 18:48 | REP ---
Clinical: Retrograde pyelogram. Stent placement. Technique: Two intraoperative fluoroscopic images obtained. Findings: Evidence for mild left hydronephrosis with satisfactory left ureteral stent placement. Total fluoroscopic time 12 seconds. Impression: Satisfactory left ureteral stent placement. Electronically Signed by Troy Davis MD 11/12/2019 06:39 P
[2019-11-12] MEDS ORDERED: oxyCODONE 5MG TAB As Ordered ONE (19:00)
[2019-11-12] MEDS ORDERED: HYDROMORPHONE HCL 0.5 MG/ 0.5 ML SYRINGE (J1170 PER 1) As Ordered ONE (19:01)
[2019-11-12] MEDS: HYDROMORPHONE HCL 0.5 MG/ 0.5 ML SYRINGE (J1170 PER 1) IV PRN ×2 (19:05→19:10)
--- NOTE | 2019-11-12 19:41 | RO ---
DATE OF PROCEDURE: 11/12/2019 PREPROCEDURE DIAGNOSIS: Left kidney and ureteral stones. POSTPROCEDURE DIAGNOSIS: Left kidney and ureteral stones. PROCEDURE: Cystoscopy, left ureteroscopy with laser lithotripsy and basket extraction of stones, left retrograde pyelogram with intraoperative interpretation of images, left ureteral stent placement. SURGEON: John Paul Baird MD JIG AND FIXTURE REPAIRER: None. ANESTHESIA: General. OPERATIVE INDICATIONS: This 29-year-old female on CT scan today was found to have an 8 mm obstructing distal left ureteral stone as well as bilateral kidney stones. She was brought to the operating room today for treatment of her left-sided kidney and ureteral stones. DESCRIPTION OF PROCEDURE: The patient was brought to the operating room and general anesthesia was induced. Prophylactic antibiotics were infused. She was placed in the dorsal lithotomy position and prepped and draped in the usual sterile fashion. A rigid cystoscope was inserted into the urethral meatus and advanced into the bladder. A guidewire was then advanced up the left collecting system. I then went up the left collecting system with a short semirigid ureteroscope and within the distal ureter the 8 mm stone was seen. The stone was then fragmented into smaller pieces using 200 micron laser fiber and all the fragments were removed using a basket. I then advanced the ureteral access sheath up the left collecting system and then went up the access sheath with a flexible ureteroscope. The left kidney was thoroughly examined. There were several stones inside the left kidney measuring up to around 3 mm in size. There was also a moderate amount of nephrocalcinosis with the stones growing out of renal papilla. The majority of these stones were removed including the ones that were attached to the renal papilla. Once done, only very tiny stones remained which the patient should be able to easily pass. At this point, a retrograde pyelogram was performed and notable for moderate left hydronephrosis with no extravasation. I then withdrew the ureteroscope along with the access sheath and no additional stones were seen within the ureter. I then utilized the wire to advance a #6-Urdu x 22-32 cm JJ ureteral stent into the left collecting system. The wire was removed and their were adequate curls of the stent in the left renal pelvis and in the bladder. The bladder was then emptied of all fluids and this marked the conclusion of the procedure. The patient was taken out of the dorsal lithotomy position, awakened from anesthesia and transferred to the recovery room in stable condition. ESTIMATED BLOOD LOSS: 5 mL COMPLICATIONS: None. SPECIMENS: Kidney stones. PLAN: The patient will be kept overnight and then be discharged home tomorrow morning for pain control. We will have her followup in the urology clinic next week with the plan to get her set up for a right-sided extracorporal shock wave lithotripsy next week. We will also remove her left ureteral stent at the time of that procedure. BRIAN
[2019-11-12 19:55] VITALS: BP 152/102
[2019-11-12] MEDS: oxyBUTYnin 5 MG TAB PO PRN (20:16)
[2019-11-12] MEDS: HEPARIN SOD (PORCINE) 5000 UNITS/ML VIAL (J1644 PER 1000UNITS) SC SCH (20:17)
[2019-11-12 20:30] VITALS: BP 144/101
[2019-11-12 21:00] VITALS: BP 140/102
[2019-11-12] MEDS ORDERED: CETIRIZINE (ZyrTEC) 10 MG TAB PO SCH (21:00)
[2019-11-12] MEDS: KETOROLAC 30 MG/ML VIAL (J1885) IV PRN (21:26)
[2019-11-12 22:00] VITALS: BP 145/103
[2019-11-12 23:00] VITALS: BP 146/104
[2019-11-13] VITALS: BP 150/106
[2019-11-13] MEDS: HYDROcodone/APAP LIQUID 7.5-325MG 15ML UDC (LORTAB ELIXIR) PO PRN ×2 (00:01→06:33)
[2019-11-13 00:32] VITALS: BP 150/112
[2019-11-13 01:00] VITALS: BP 144/95
[2019-11-13] MEDS ORDERED: ALPRAZolam 0.25 MG TAB PO ONE (02:00)
[2019-11-13 05:00] VITALS: BP 124/82
[2019-11-13] MEDS: KETOROLAC 30 MG/ML VIAL (J1885) IV PRN (05:05)
[2019-11-13] MEDS: oxyBUTYnin 5 MG TAB PO PRN (06:33)
[2019-11-13 06:51] LABS: HEMATOCRIT 37.9 % (36.0-47.0); HEMOGLOBIN 11.7 g/dl (12.0-15.5); MEAN CORPUSCULAR HEMOGLOBIN 29.3 pg (27.0-33.0); MEAN CORPUSCULAR HGB CONC 30.9 g/dl (32.0-36.5); PLATELET COUNT, AUTOMATED 201 10^3/uL (150-450); RED BLOOD COUNT 3.99 10^6/uL (4.00-5.40); WHITE BLOOD COUNT 6.3 10^3/uL (4.0-10.0)
[2019-11-13 07:04] LABS: BLOOD UREA NITROGEN 14 MG/DL (7-18); CALCIUM LEVEL 8.6 MG/DL (8.5-10.1); CARBON DIOXIDE LEVEL 26 MEQ/L (21-32); CHLORIDE LEVEL 107 MEQ/L (98-107); CREATININE FOR GFR 0.98 MG/DL (0.55-1.30); GLOMERULAR FILTRATION RATE > 60.0 (>60); GLUCOSE, FASTING 82 MG/DL (70-100); MAGNESIUM LEVEL 1.8 MG/DL (1.8-2.4); POTASSIUM SERUM 4.4 MEQ/L (3.5-5.1); SODIUM LEVEL 138 MEQ/L (136-145)
[2019-11-13 08:10] VITALS: BP 124/82
[2019-11-13] MEDS: amLODIPine 10 MG TAB PO SCH (08:10)
[2019-11-13] MEDS: HEPARIN SOD (PORCINE) 5000 UNITS/ML VIAL (J1644 PER 1000UNITS) SC SCH (08:11)
[2019-11-13 09:00] VITALS: BP 148/99
[2019-11-13] MEDS ORDERED: TAMSULOSIN 0.4 MG CAP PO SCH (09:00)
--- NOTE | 2019-11-13 15:38 | DS.PDOC ---
Discharge Summary General Date of Admission Nov 12, 2019 at 12:29 Date of Discharge 11/13/19 Discharge Summary PROCEDURES PERFORMED DURING STAY: None ADMITTING DIAGNOSES: Ureterolithiasis Renal colic Left flank pain DISCHARGE DIAGNOSES: Ureterolithiasis Renal colic Left flank pain COMPLICATIONS/CHIEF COMPLAINT: Left Flank Pain Renal Colic Ureterolithiasis. HISTORY OF PRESENT ILLNESS: Patient is 29 years old female with past history of nephrolithiasis, medullary sponge kidney, gastric sleeve surgery, hypertension presented to the hospital with severe left lower quadrant abdominal pain. Patient stated the pain 10 out of 10 started few days ago associated with nausea and vomiting. In emergency room patient was found to have on abdominal CT two 8 mm calculi in the pelvis on the left, not present on the comparison study, possibly distal left ureteral calculi. There is left hydronephrosis as an int erval change. HOSPITAL COURSE: During hospital stay the following procedure was done Cystoscopy, left ureteroscopy with laser lithotripsy and basket extraction of stones, left retrograde pyelogram with intraoperative interpretation of images, left ureteral stent placement. DISCHARGE MEDICATIONS: Please see below. ALLERGIES: Please see below. PHYSICAL EXAMINATION ON DISCHARGE: VITAL SIGNS: Please see below. Objective: VITAL SIGNS: Please see below. GENERAL APPEARANCE: Well-nourished, well-developed, not in apparent distress HEENT: Normocephalic, atraumatic. Mucous members moist and pink CARDIOVASCULAR: Regular rate and rhythm. No murmurs, rubs or gallops. Radial pulses are intact. There is no lower extremity edema LUNGS: Diminished lung sounds ABDOMEN: Abdomen is soft and nontender. MUSCULOSKELETAL: Range of motion is intact in all 4 extremities NEUROLOGICAL: Cranial nerves II-12 are grossly intact. Speech is not dysarthric LABORATORY DATA: Please see below. IMAGING: CT of the abdomen pelvis without IV wall contrast for left lower quadrant pain and history of renal calculi: Comparison is 08/31/1928 teen. There are multiple bilateral nonobstructive renal calculi, as previously. However, there is left hydronephrosis/hydroureter as an interval change. There are two calculi in the pelvis on the left, not present previously, what along the left pelvic sidewall on image 100 and a left posterolateral to the urinary bladder on the left on image 120. These calculi measure approximate millimeters in diameter each and were not present in these locations on the comparison study, therefore, could be a left ureteral calculi. Confirmation with a CT urogram might be considered for assurance that these calculi within the ureter. There is no perinephric stranding on the left on the right. The visualized lower lung lund are unremarkable. The unenhanced hepatic parenchyma, gallbladder, and spleen are unremarkable. The pancreas is obscured by the minimal intraperitoneal body fat. There are surgical clips in the gastric wall as previously. The adrenals are unremarkable. The abdominal aorta is unremarkable. There is no periaortic adenopathy or mass. There is no bowel distension or obstruction. There is no ascites. Pelvis: The appendix is unremarkable. The uterus and adnexa are unremarkable. The pelvic bowel loops are unremarkable. There is no ascites or adenopathy. Impression: There are two 8 mm calculi in the pelvis on the left, not present on the comparison study, possibly distal left ureteral calculi. There is left hydronephrosis as an interval change. Consider a CT urogram for confirmation. There are surgical clips in the gastric wall as previously. There are multiple bilateral nonobstructive renal calculi, as previously. Electronically Signed by Tae Mark MD 11/12/2019 10:11 A DD: Tae Mark MD 11/12/19 0956 DT: Jeffery 11/12/19 1011 PROGNOSIS: Favorable ACTIVITY: As tolerated DIET: Regular DISCHARGE PLAN: followup in the urology clinic next week with the plan to get her set up for a right-sided extracorporal shock wave lithotripsy next week. Will also remove her left ureteral stent at the time of that procedure. DISPOSITION: 01 Home, Self-Care. DISCHARGE INSTRUCTIONS: See above ITEMS TO FOLLOWUP ON ON OUTPATIENT: See above DISCHARGE CONDITION: Stable TIME SPENT ON DISCHARGE: Greater than 20 minutes. Vital Signs/I&Os Vital Signs Date Time Temp Pulse Resp B/P (MAP) Pulse Ox O2 Delivery O2 Flow Rate FiO2 11/13/19 09:00 98.2 87 16 148/99 (115) 100 Room Air I&O- Last 24 Hours up to 6 AM 11/13/19 06:00 Intake Total 2160 ml Output Total 1500 ml Balance 660 ml Laboratory Data Labs 24H Laboratory Tests 2 11/12/19 18:07: 11/13/19 06:26: Nucleated Red Blood Cells % (auto) 0.0, Anion Gap 5L, Glomerular Filtration Rate > 60.0, Calcium Level 8.6, Magnesium Level 1.8 CBC/BMP Laboratory Tests 11/13/19 06:26 Microbiology Microbiology 11/12/19 Urine Culture - Final, Complete 11/12/19 Blood Culture - Preliminary, Resulted No growth after 24 hours . All specim... Discharge Medications Scheduled Amlodipine Besylate (Amlodipine Besylate) 10 Mg Tablet, 10 MG PO DAILY, (Reported) Amoxicillin/Potassium Clav (Amox-Clav 875-125 mg Tablet) 1 Each Tablet, 1 TAB PO BID, (Reported) FILLED 11/08/19 FOR 10 DAYS Azelastine HCl (Azelastine HCl) 0.1% [place].pump, 2 SPRAY NARES BID, (Reported) Cetirizine HCl (Cetirizine HCl) 10 Mg Tablet, 10 MG PO QHS, (Reported) Tamsulosin HCl (Flomax) 0.4 Mg Capsule, 0.4 MG PO DAILY Scheduled PRN Oxybutynin Chloride (Oxybutynin Chloride) 5 Mg Tablet, 5 MG PO Q8HP PRN for BLADDER SPASM Oxycodone HCl/Acetaminophen (Oxycodone-Acetaminophen 5-325) 1 Each Tablet, 1 TAB PO Q6HP PRN for MODERATE/SEVERE PAIN (PS 5-10) Allergies Coded Allergies: morphine (Verified Allergy, Severe, "i coded", 03/05/19) Cephalosporins (Verified Allergy, Intermediate, rash, 03/05/19) Contrast Media (Verified Allergy, Intermediate, ITCHING, 05/26/17) ergocalciferol (vitamin D2) (Verified Allergy, Intermediate, 03/05/19) tremors latex (Verified Allergy, Intermediate, rash, 03/05/19) ketamine (Verified Adverse Reaction, Intermediate, "PASSED OUT", 08/31/19) NSAIDS (Non-Steroidal Anti-Inflamma (Verified Adverse Reaction, Mild, gi bleeding/ gasrtic sleeve, 08/31/19) gi bleeding/ gasrtic sleeve FRANCESCA THOMSON DO Nov 13, 2019 15:38
== END 2019-11-13 11:14 | disposition home or self-care (01) | DRG 660 ==
LOC: M ED 08:42 → M ED INP 12:29 → ENRESERVDT 13:45 → ENRESERVTM 13:45 → M MSPAV 14:53
PROVIDERS: ADMIT Internal Medicine; ATTEND Internal Medicine
PROC: 0T778DZ Dilation of Left Ureter with Intraluminal Device, Via Natural or Artificial Opening Endoscopic (ICD-10-PCS; 2019-11-12)
PROC: BT02ZZZ Plain Radiography of Left Kidney (ICD-10-PCS; 2019-11-12)
PROC: 0TC18ZZ Extirpation of Matter from Left Kidney, Via Natural or Artificial Opening Endoscopic (ICD-10-PCS; principal; 2019-11-12 15:30)
DX: N13.2 Hydronephrosis with renal and ureteral calculous obstruction (principal); Q61.5 Medullary cystic kidney; Z98.84 Bariatric surgery status; I10 Essential (primary) hypertension; Z88.1 Allergy status to other antibiotic agents; Z88.5 Allergy status to narcotic agent; Z88.6 Allergy status to analgesic agent; Z88.8 Allergy status to other drugs, medicaments and biological substances; Z91.040 Latex allergy status; Z91.041 Radiographic dye allergy status; Z79.899 Other long term (current) drug therapy

== ENCOUNTER 2019-11-18 07:34 | Day surgery (SDC) | payer OTHER ==
[~2019-11-18] VITALS: Ht 160 cm; Wt 63.4 kg
[~2019-11-18 07:34] MED LIST changes: +AMOX875T2 PO; +AZEL0.1S NARES; +CETI10TA4 PO; +FLOM0.4C39 PO; +LIDOCAINE 2% INJ 100 MG/5 ML SDV (FOR ANES.) As Ordered ONE; +LevoFLOXacin IV 500 MG in IV 1 EA IV ONE; +MIDAZOLAM INJ 2 MG/2 ML VIAL (J2250) As Ordered ONE; +OXYB5TAB10 PO; +OXYC1TAB23 PO; +fentaNYL 100 MCG/2 ML INJECTION (J3010) As Ordered ONE; +propofoL 200 MG/20 ML VIAL As Ordered ONE
--- NOTE | 2019-11-18 08:22 | REP ---
Clinical: Kidney stone. Technique: Single supine view of the abdomen and pelvis. Findings: Left ureteral stent in satisfactory position and two distal ureteral calculi are suggested measuring approximately 7 and 4 mm likely approaching the ureterovesical junction. No obvious left intrarenal calculi noted on current examination. Right intrarenal calculi measure up to approximately 10 ml. Bowel gas pattern is nonspecific. No organomegaly. Skeletal structures are intact. Impression: Suspected distal left ureteral calculi and right intrarenal calculi Electronically Signed by Troy Davis MD 11/18/2019 08:13 A
[2019-11-18] MEDS ORDERED: ACETAMINOPHEN 1000MG 100ML IV BTL (OFIRMEV) (J0131 PER 10MG) As Ordered ONE (10:45)
[2019-11-18] MEDS ORDERED: oxyCODONE 5MG TAB As Ordered ONE (11:07)
[2019-11-18] MEDS: oxyCODONE 5MG TAB PO PRN ×2 (11:10→11:41)
[2019-11-18] MEDS ORDERED: PERCOCET 5MG/325MG TAB PO PRN (11:15)
[2019-11-18] MEDS ORDERED: LR 1,000 ML IV SCH (11:15)
[2019-11-18] MEDS ORDERED: ONDANSETRON 4MG/2ML VIAL (J2405) IV PRN (11:15)
[2019-11-18] MEDS ORDERED: HYDROMORPHONE HCL 0.5 MG/ 0.5 ML SYRINGE (J1170 PER 1) As Ordered ONE (11:16)
[2019-11-18] MEDS ORDERED: HYDROMORPHONE HCL 0.5 MG/ 0.5 ML SYRINGE (J1170 PER 1) IV PRN (11:45)
[2019-11-18 13:00] VITALS: BP 137/100
--- NOTE | 2019-11-19 11:07 | RO ---
DATE OF PROCEDURE: 11/18/2019 PREPROCEDURE DIAGNOSIS: Kidney stones. POSTPROCEDURE DIAGNOSIS: Kidney stones. PROCEDURE: Right extracorporeal shock wave lithotripsy, cystoscopy with left ureteral stent removal. SURGEON: John Paul Baird MD ASSISTANT ATTORNEY GENERAL: None. ANESTHESIA: Monitored anesthesia care (MAC). OPERATIVE INDICATIONS: This is a 29-year-old female with history of medullary sponge kidney who underwent a cystoscopy, left ureteroscopy and laser lithotripsy and left ureteral stent placement approximately 1 week ago. All of her left-sided stones were cleared out at that time. She also of note had a nonobstructing right kidney stone measuring up to around 9 mm. She is brought to the operating room today to treat the right-sided kidney stone and to remove her left ureteral stone. DESCRIPTION OF PROCEDURE: The patient was brought to the operating room and monitored anesthesia care (MAC) was administered. Prophylactic antibiotics were infused. She was then placed in a supine position and prepped and draped in the usual sterile fashion. A flexible cystoscope was inserted into the urethral meatus and advanced into the bladder. The previously placed left ureteral stent was seen. The stent was then grasped and withdrawn from the left collecting system intact. At this point, we proceeded to perform right-sided extracorporeal shock wave lithotripsy. Fluoroscopy and ultrasonography were utilized to monitor stone position and fragmentation throughout the procedure. Shock waves were then delivered to the 9 mm stone, ungated. There were no arrhythmias. The stone did appear to fragment well. After 2500 shocks, the procedure was concluded. The patient was then awakened from anesthesia and transported to the recovery room in stable condition. Estimated blood loss: Zero mL. Complications: None. Specimens: None. Plan: The patient will followup in the clinic in a few weeks with imaging prior to assess for residual stone burden. BRIAN
== END 2019-11-18 13:06 | disposition home or self-care (01) ==
LOC: M SDC 07:34
PROVIDERS: ATTEND Urology
DX: N20.0 Calculus of kidney (principal); I10 Essential (primary) hypertension; E03.9 Hypothyroidism, unspecified; F41.9 Anxiety disorder, unspecified; Z86.73 Personal history of transient ischemic attack (TIA), and cerebral infarction without residual deficits; Z87.891 Personal history of nicotine dependence; Z79.899 Other long term (current) drug therapy; Z91.040 Latex allergy status; Z88.1 Allergy status to other antibiotic agents; Z88.5 Allergy status to narcotic agent; Z88.8 Allergy status to other drugs, medicaments and biological substances
CPT/HCPCS: 50590; 52310; 74018; 81025; J0131; J1170; J1956; J2250; J2405; J3010

== ENCOUNTER → 2019-12-01 | Outpatient (CLI) | payer OTHER ==
[~2019-12-01] MED LIST changes: -LIDOCAINE 2% INJ 100 MG/5 ML SDV (FOR ANES.) As Ordered ONE; -LevoFLOXacin IV 500 MG in IV 1 EA IV ONE; -MIDAZOLAM INJ 2 MG/2 ML VIAL (J2250) As Ordered ONE; -fentaNYL 100 MCG/2 ML INJECTION (J3010) As Ordered ONE; -propofoL 200 MG/20 ML VIAL As Ordered ONE
--- NOTE | 2019-12-01 16:54 | REP ---
Supine abdomen two views for renal calculi: Comparison is 11/18/2019. No calcifications are projected over the left kidney. There are calcifications projected over the right kidney. Some of these calcifications are quite tiny as an interval change. There are calcifications in the pelvis bilaterally, unchanged. The previous left ureteral stent has been removed. The bowel gas pattern is normal. Skeletal structures are unremarkable. Electronically Signed by Tae Mark MD 12/01/2019 04:46 P
== END ==
LOC: M LRY 13:57
PROVIDERS: ATTEND Nurse Practitioner Women's Health
DX: N20.0 Calculus of kidney (principal)

== ENCOUNTER → 2020-11-03 | Outpatient (CLI) | payer OTHER ==
[~2020-11-03] MED LIST changes: -ALL10TAB29 PO; -AMLO10TA5 PO; +AMLO1TAB25 PO; +CETI-24 PO
--- NOTE | 2020-11-03 17:01 | ECGEPIP ---
[facility] Test Date: 2020-11-03 Pat Name: SUNNY MONTES Department: Room: - Gender: Female Athletic Coordinator: [facility] : 1990 Requested By: Yrn Bah Order Number: [id number] Reading MD: Yoseph Dowd Measurements Intervals [place] Rate: 90 P: 72 MT: 130 QRS: 65 QRSD: 74 T: 28 QT: 350 QTc: 428 Interpretive Statements Normal sinus rhythm Left atrial conduction disturbance Prominent precordial voltages with inferoapical ST/T wave abnormalities probable L LVH. Subtle repolarization changes from 11/08/19. Electronically Signed on 11-03-2020 17:00:53 EST by Yoseph Dowd
== END ==
LOC: M EKG 09:13
PROVIDERS: ATTEND Internal Medicine Cardiovascular Disease
DX: R00.0 Tachycardia, unspecified (principal)

== ENCOUNTER → 2021-02-26 | Outpatient (REF) | payer OTHER ==
[2021-02-26 17:46] LABS: APPEARANCE, URINE HAZY (CLEAR); BACTERIA, URINE AUTO 1+ (NEGATIVE); BILIRUBIN, URINE AUTO NEGATIVE (NEGATIVE); BLOOD, URINE BLOOD 2+ (NEGATIVE); COLOR, URINE YELLOW (YELLOW); GLUCOSE, URINE (UA) AUTO NEGATIVE (NEGATIVE); KETONE, URINE AUTO NEGATIVE (NEGATIVE); LEUKOCYTE ESTERASE, URINE AUTO NEGATIVE (NEGATIVE); MUCUS, URINE SMALL (NEGATIVE); NITRITE, URINE AUTO NEGATIVE (NEGATIVE); PROTEIN, URINE AUTO 1+ mg/dL (NEGATIVE); RBC, URINE AUTO 119 /HPF (0-3); SPECIFIC GRAVITY URINE AUTO 1.018 (1.002-1.035); SQUAMOUS EPITHELIAL CELL UR AU 3 /HPF (0-6); UROBILINOGEN, URINE AUTO 0.2 mg/dL (0.0-2.0); WBC, URINE AUTO 6 /HPF (0-3)
== END ==
LOC: M LAB REF 16:44
PROVIDERS: ATTEND Physician Assistant Medical
DX: N39.0 Urinary tract infection, site not specified (principal)